=== PATIENT | female | born 1990 | race Hispanic/Latino ===

== ENCOUNTER 2018-11-23 13:26 | Inpatient (IN) | payer BC ==
--- NOTE | 2018-11-23 19:04 | PDOC.LDHP ---
Labor and Delivery H&P Chief complaint: scheduled induction HPI: 28 yo @ 39w3d by LMP c/w 8 week CRL who presents for EIOL. Antepartum course uncomplicated. Current gestational age (weeks): 39 Due date: 11/27/18 Dating criteria: last menstrual period Grav: 1 Para: 0 Current complications: none Abnormal US findings: No Past Medical History: Denies Current medications: pre- vitamins Previous surgical history: none Allergies/Adverse Reactions: Allergies Allergy/AdvReac Type Severity Reaction Status Date / Time No Known Allergies Allergy Verified 11/23/18 22:54 Social history: none - Physical Exam Vital signs reviewed and normal: yes General: NAD Heart: RRR Lungs: nonlabored breathing Abdomen: gravid Extremeties: no edema FHT: category 1 (140s, mod benjamin, +accels, no decels) [place] contractions every: q2-3 min when adequately monitoring - Vaginal Exam cm dilated: 3 (cephalic; arom blood tinged fluid ) Effacement: 50% Station: -2 - OB Labs Blood type: O RH: positive Antibody Screen: negative HIV: negative RPR: negative HEPSAg: negative 1 hour GCT: negative GBS: negative Urine drug screen: not done Rubella: immune Additional Labs: SS wnl - Assessment L&D Assessment: elective induction at term - Plan Plan: admit to L&D, cervical ripening (s/p cytotec; will plan to start pitocin) , informed consent obtained, anesthesia consult for pain management
[2018-11-23] MEDS ORDERED: Carboprost 250 MCG/ML AMP IM PRN (22:10)
[2018-11-23] MEDS ORDERED: Lidocaine 1% (PF) 30 ML VIAL SC PRN (22:10)
[2018-11-23] MEDS ORDERED: Acetaminophen 500 MG TAB PO PRN (22:10)
[2018-11-23] MEDS ORDERED: HYDROcodone/Acetaminophen 5/325 mg Tablet PO PRN (22:10)
[2018-11-23] MEDS ORDERED: Diphenoxylate HCl/Atropine Tablet PO PRN (22:10)
[2018-11-23] MEDS ORDERED: Promethazine HCl 25 MG/ML VIAL IM PRN (22:10)
[2018-11-23] MEDS ORDERED: Ibuprofen 800 MG TAB PO PRN (22:10)
[2018-11-23] MEDS ORDERED: Misoprostol 200 MCG TAB PR PRN (22:10)
[2018-11-23] MEDS ORDERED: Methylergonovine 0.2 MG/ML VIAL IM PRN (22:10)
[2018-11-23] MEDS ORDERED: Ondansetron PF 4 MG/2 ML Vial IVP PRN (22:10)
[2018-11-23] MEDS ORDERED: Butorphanol Tartrate 1 MG/ML VIAL SLOW IVP PRN (22:10)
[2018-11-23 22:38] VITALS: BMI 37.1
[2018-11-23] MEDS: Misoprostol 100 MCG TAB VAG SCH (22:58)
[2018-11-23 22:59] LABS: Hemoglobin 13.9 g/dL (12.0-16.0); Mean Corpuscular HGB CONC 34.1 g/dL (32.0-36.0); Mean Corpuscular Hemoglobin 31.1 pg (27.0-31.0); Mean Corpuscular Volume 91.2 fL (78.0-98.0); Mean Platelet Volume 8.3 fL (7.4-10.4); Platelet Count 223 thou/uL (130-400); Red Blood Cell (RBC) Count 4.47 mill/uL (4.20-5.40); White Blood Cell (WBC) Count 11.1 thou/uL (4.8-10.8)
[2018-11-23 23:36] LABS: Syphilis Antibody Nonreactive (Nonreactive); Syphilis Antibody Index 0.05 S/CO (<1.00 Non-Reactive)
[2018-11-24] MEDS: Misoprostol 100 MCG TAB VAG SCH ×5 (02:02→17:52)
[2018-11-24] MEDS: Lactated Ringer's 1,000 ML IV SCH ×3 (02:04→13:46)
[2018-11-24 02:14] LABS: HIV (1/2) Antibody/Antigen Non-Reactive (NonReactive); HIV 1/2 INDEX 0.09 S/CO (<1.00); Hep B Surf Ag Non-Reactive S/CO (NonReactive)
[2018-11-24] MEDS ORDERED: NS w/ Oxytocin 10 units 500 ML IV SCH (06:00)
--- NOTE | 2018-11-24 12:48 | PDOC.LDPN ---
Labor & Delivery Progress Note - Subjective Subjective: painful contractions - Objective Vital signs reviewed and normal: yes General: NAD Uterine fundus: non tender Dilation: 4-5 Effacement: 75% Station: -2 FHT: category 1 (140s, mod benjamin, +accels, no decels ) [place] contractions every: q2-3 min IUPC placed: yes - Assessment (1) 39 weeks gestation of Code(s): Z3A.39 - 39 WEEKS GESTATION OF Current Visit: Yes Status : Acute (2) Encounter for elective induction of labor Code(s): Z34.90 - ENCNTR FOR SUPRVSN OF NORMAL , UNSP, UNSP TRIMESTER Current Visit: Yes Status: Acute Plan: continue plan of care, pitocin for augmentation -: IUPC placed due to lack of change from last exam. Continue pitocin.
[2018-11-24] MEDS: NS / Oxytocin 40 units/1000ml 1,000 ML IV PRN ×2 (19:50→21:18)
--- NOTE | 2018-11-24 20:34 | PDOC.OPDEL ---
OB Operative/Delivery Note Delivery Dr/Surgeon: Marilu Hobbs DO Pre-Delivery Diagnosis: elective induction Procedure/Post Delivery Dx: spontaneous vaginal delivery Weeks gestation: 39 Anesthesia: none - Findings A Sex: male - 1 min: 8 - 5 min: 9 - Additional Findings/Plan Placenta delivered: spontaneous Repaired Obstetrical Laceration: other (2nd degree and left periclitoral lacerations repaired.) Estimated blood loss: EBL 600 cc Compilations/Other Findings: Infant in cephalic presentation in [place]IL[place] position. Short shoulder dystocia for approx 5 -10 seconds relieved with Gayle and suprapubic pressure. Infant with immediate cry upon delivery and moving bother UEs. No obvious abnormalities. Normal appearing placenta Post delivery plan: routine recovery
[2018-11-24] MEDS ORDERED: diphenhydrAMINE 25 MG CAP PO PRN (23:15)
[2018-11-24] MEDS ORDERED: Benzocaine/Menthol 20-0.5% 60 ML CAN TOP PRN (23:15)
[2018-11-24] MEDS ORDERED: Bisacodyl 10 MG SUPP PR PRN (23:15)
[2018-11-24] MEDS ORDERED: Preparation H Ointment 28 GM TUBE PR PRN (23:15)
[2018-11-24] MEDS ORDERED: HYDROcodone/Acetaminophen 5/325 mg Tablet PO PRN (23:15)
[2018-11-24] MEDS ORDERED: NS / Oxytocin 40 units/1000ml 1,000 ML IV SCH (23:15)
[2018-11-25] MEDS: Ibuprofen 800 MG TAB PO SCH ×3 (06:16→22:28)
[2018-11-25 06:21] LABS: Hemoglobin 11.9 g/dL (12.0-16.0); Mean Corpuscular HGB CONC 34.2 g/dL (32.0-36.0); Mean Corpuscular Hemoglobin 31.4 pg (27.0-31.0); Mean Corpuscular Volume 91.8 fL (78.0-98.0); Mean Platelet Volume 8.2 fL (7.4-10.4); Platelet Count 199 thou/uL (130-400); RBC Distribution Width 12.1 % (11.5-14.5); Red Blood Cell (RBC) Count 3.78 mill/uL (4.20-5.40); White Blood Cell (WBC) Count 18.5 thou/uL (4.8-10.8)
--- NOTE | 2018-11-25 08:11 | PDOC.PP ---
Post Progress Note Post Day #: 1 Subjective: No concerns. Minimal pain. Moderate lochia. PO intake tolerated: yes Flatus: yes Ambulation: yes Vital Signs (12 hours) Temp Pulse Resp BP Pulse Ox 11/25/18 07:51 98.4 F 89 20 115/58 L 95 11/25/18 03:45 98.0 F 88 18 106/57 L 11/25/18 01:26 98.0 F 99 18 113/55 L 11/25/18 00:14 98.1 F 101 H 18 118/55 L 11/24/18 23:14 98.1 F 87 18 111/60 Weight Weight 230 lb - Physical Examination General: NAD Cardiovascular: RRR Respiratory: non-labored breathing Abdominal: no distention, appropriately TTP Fundus firm & at: below umbilicus Extremities: negative homans (B) Neurological: no gross focal deficits Psychiatric: A&Ox3, normal affect Result Diagrams: 11/25/18 06:10 Additional Labs: Post Labs Blood Type O POSITIVE 11/23/18 22:50 Hep Bs Antigen Non-Reactive S/CO (NonReactive) 11/23/18 22:50 (1) 39 weeks gestation of Code(s): Z3A.39 - 39 WEEKS GESTATION OF Status: Resolved (2) Encounter for elective induction of labor Code(s): Z34.90 - ENCNTR FOR SUPRVSN OF NORMAL , UNSP, UNSP TRIMESTER Status: Resolved (3) (spontaneous vaginal delivery) Code(s): O80 - ENCOUNTER FOR FULL-TERM UNCOMPLICATED DELIVERY Status: Acute - Assessment/Plan PPD1 VSSAF Reviewed suspected infant clavicle fracture with SD. Counseled on SD, will discuss in more detail. Continue PP care. Plan for d/c 1-2 days.
[2018-11-25] MEDS: Ferrous Sulfate 325 MG TAB PO SCH ×2 (08:23→18:05)
[2018-11-25] MEDS: Prenatal Vitamin 1 TAB PO SCH (08:23)
[2018-11-25] MEDS: Docusate Calcium (SURFAK) 240 MG CAP PO SCH ×2 (08:24→22:27)
[2018-11-25] MEDS ORDERED: Milk Of Magnesia 30 ML UDCUP PO PRN (09:00)
[2018-11-26] MEDS: Ibuprofen 800 MG TAB PO SCH (05:28)
[2018-11-26 07:42] VITALS: BP 115/63; TEMP 98.1
[2018-11-26] MEDS: Docusate Calcium (SURFAK) 240 MG CAP PO SCH (08:51)
[2018-11-26] MEDS: Ferrous Sulfate 325 MG TAB PO SCH (08:51)
[2018-11-26] MEDS: Prenatal Vitamin 1 TAB PO SCH (08:51)
--- NOTE | 2018-11-26 09:22 | PDOC.PP ---
Post Progress Note Post Day #: 2 Subjective: No concerns. PO intake tolerated: yes Flatus: yes Ambulation: yes Vital Signs (12 hours) Temp Pulse Resp BP Pulse Ox 11/26/18 07:41 98.1 F 90 20 115/63 96 Weight Weight 230 lb - Physical Examination Cardiovascular: RRR Respiratory: non-labored breathing Abdominal: no distention, appropriately TTP Fundus firm & at: below umbilicus Extremities: negative homans (B) Neurological: no gross focal deficits Psychiatric: A&Ox3, normal affect Result Diagrams: 11/25/18 06:10 Additional Labs: Post Labs Blood Type O POSITIVE 11/23/18 22:50 Hep Bs Antigen Non-Reactive S/CO (NonReactive) 11/23/18 22:50 (1) 39 weeks gestation of Code(s): Z3A.39 - 39 WEEKS GESTATION OF Status: Resolved (2) Encounter for elective induction of labor Code(s): Z34.90 - ENCNTR FOR SUPRVSN OF NORMAL , UNSP, UNSP TRIMESTER Status: Resolved (3) (spontaneous vaginal delivery) Code(s): O80 - ENCOUNTER FOR FULL-TERM UNCOMPLICATED DELIVERY Status: Acute - Assessment/Plan PPD 2 VSSAF Stable for d/c home. F/U 6 weeks.
== END 2018-11-26 12:10 | disposition home or self-care (01) | DRG 807 ==
LOC: L&D 22:09 → 3SW 11-24 23:15 → EDSTATUS 11-27 13:25
PROVIDERS: ADMIT Obstetrics & Gynecology; ATTEND Obstetrics & Gynecology
PROC: 3E0P7VZ Introduction of Hormone into Female Reproductive, Via Natural or Artificial Opening (ICD-10-PCS; 2018-11-23)
PROC: 10H07YZ Insertion of Other Device into Products of Conception, Via Natural or Artificial Opening (ICD-10-PCS; 2018-11-23)
PROC: 4A1H7CZ Monitoring of Products of Conception, Cardiac Rate, Via Natural or Artificial Opening (ICD-10-PCS; 2018-11-23)
PROC: 10E0XZZ Delivery of Products of Conception, External Approach (ICD-10-PCS; principal; 2018-11-24)
DX: O66.0 Obstructed labor due to shoulder dystocia (principal); Z37.0 Single live birth; O70.1 Second degree perineal laceration during delivery; Z3A.39 39 weeks gestation of pregnancy
CPT/HCPCS: 36415; 85027; 86780; 86850; 86900; 86901; 87340; 87389; J2001